=== PATIENT | male | born 1965 | race Caucasian/White ===

== ENCOUNTER → 2016-11-16 | Outpatient (CLI) | payer BC ==
--- NOTE | 2016-11-16 15:45 | CT ---
EXAMINATION TYPE: CT chest w con DATE OF EXAM: 11/16/2016 COMPARISON: NONE HISTORY: Cough CT DLP: 425.50 mGycm Automated exposure control for dose reduction was used. CONTRAST: CT scan of the chest is performed with IV Contrast, patient injected with 100 mL of Omnipaque 300. FINDINGS: There is a 5.9 mm noncalcified pulmonary nodule in the anteromedial basal segment of the le ft lower lobe, best seen on image 29. There is no significant axillary or hilar adenopathy. There is some shotty mediastinal lymph nodes. There is no pleural or pericardial fluid. The heart is not enlarged. There is a small hiatal hernia. Visualized upper abdominal structures are normal. There is mild hypertrophic spondylosis in the lower dorsal spine. IMPRESSION: 1. NO ACUTE INTRATHORACIC ABNORMALITY. 2. SMALL HIATAL HERNIA. 3. MINIMAL DEGENERATIVE CHANGE, LOWER DORSAL SPINE. 4. SOLITARY LEFT-SIDED PULMONARY NODULE. THREE-MONTH SHORT-TERM FOLLOW-UP WOULD BE SUGGESTED.
== END | disposition home or self-care (01) ==
LOC: RADCTMAIN 14:47
PROVIDERS: ATTEND Internal Medicine
DX: R91.1 Solitary pulmonary nodule (principal)
CPT/HCPCS: 71260; Q9967

== ENCOUNTER → 2019-03-31 | Outpatient (CLI) | payer OTHER ==
--- NOTE | 2019-03-31 13:57 | XR ---
EXAMINATION TYPE: XR lumbosacral spine min 4V DATE OF EXAM: 03/31/2019 CLINICAL HISTORY: Acute low back pain with radiculopathy after strain injury yesterday TECHNIQUE: Frontal, lateral, and oblique images of the lumbar spine are obtained. COMPARISON: None FINDINGS: There are 5 lumbar type vertebral bodies identified. The lumbar spine shows satisfactory alignment without evidence of acute fracture or dislocation. Vertebral body heights are within normal limits. Intervertebral disc space narrowing is seen at L5-S1. Mild facet arthropathy from L4 through S1. Small anterior osteophyte of the superior end plate of L4. Mild degenerative disc disease is als o seen in the visualized portions of the lower thoracic spine, incompletely visualized. The oblique i mages appear within normal limits. Overlying bowel is nondilated. IMPRESSION: No acute fracture or dislocation is seen in the lumbar spine. Mild multilevel degenerati ve disc disease of the lumbar spine. Given patient's symptoms evaluation for disc herniation could be performed with MRI of the lumbar spine.
== END | disposition home or self-care (01) ==
LOC: RADXRYALE 13:12
PROVIDERS: ATTEND Internal Medicine
DX: M51.36 Other intervertebral disc degeneration, lumbar region (principal)
CPT/HCPCS: 72110

== ENCOUNTER → 2019-06-06 | Outpatient (CLI) | payer OTHER ==
--- NOTE | 2019-06-06 07:31 | CT ---
EXAMINATION TYPE: CT chest w con DATE OF EXAM: 06/06/2019 COMPARISON: Chest CT April 02, 2017 and older study November 16, 2016 HISTORY: Lung Nodules CT DLP: 487.2 mGycm. Automated Exposure Control for Dose Reduction was Utilized. TECHNIQUE: CT scan of the thorax is performed following with IV Contrast, patient injected with 100 mL of Isovue 300. FINDINGS: LUNGS: Stable 4 mm nodule lateral left lung base on axial image 52. 5 x 3 mm left mid lung scar like opacity is stable from most recent study. No new greater than 4 mm pulmonary nodules or masses . Scat tered mild chronic parenchymal fibrotic changes. No pleural effusion or pneumothorax. MEDIASTINUM: There are no greater than 1 cm hilar or mediastinal lymph nodes. No cardiomegaly or pe ricardial effusion is seen. OTHER: Liver remains diffusely low dense consistent with diffuse fatty infiltration. IMPRESSION: Overall stable findings, documentation of over 2 year stability consistent with benign po stinflammatory etiology.
== END | disposition home or self-care (01) ==
LOC: RADCTMAIN 06:14
PROVIDERS: ATTEND Internal Medicine
DX: R91.8 Other nonspecific abnormal finding of lung field (principal)
CPT/HCPCS: 71260; Q9967

== ENCOUNTER → 2019-07-18 | Outpatient (CLI) | payer OTHER ==
--- NOTE | 2019-07-19 08:14 | XR ---
EXAMINATION TYPE: XR lumbosacral spine min 4V DATE OF EXAM: 07/18/2019 CLINICAL HISTORY: Low back pain after strain injury TECHNIQUE: Frontal, lateral, and oblique images of the lumbar spine are obtained. COMPARISON: 03/31/2019 FINDINGS: There are 5 lumbar type vertebral bodies identified. The lumbar spine shows satisfactory alignment without evidence of acute fracture or dislocation. Vertebral body heights and disk space he ights are within normal limits. Intervertebral disc space narrowing is again seen at L5-S1 with facet arthropathy from L4 through S1. Small anterior osteophytes of the lumbar spine are redemonstrated. The oblique images appear within normal limits. The overlying soft tissue appears unremarkable. Mild atherosclerosis of the abdominal aorta. IMPRESSION: 1. No acute fracture or dislocation is seen in the lumbar spine. 2. Mild multilevel degenerative disc disease is similar in degree to the prior of 03/31/2019.
== END | disposition home or self-care (01) ==
LOC: RADXRYALE 16:18
PROVIDERS: ATTEND Internal Medicine
DX: M51.37 Other intervertebral disc degeneration, lumbosacral region (principal)
CPT/HCPCS: 72110

== ENCOUNTER → 2020-11-28 | Outpatient (CLI) | payer OTHER ==
--- NOTE | 2020-11-29 11:52 | CT ---
EXAMINATION TYPE: CT chest wo con DATE OF EXAM: 11/28/2020 COMPARISON: 06/06/2019 HISTORY: lung nodule CT DLP: 488.90 mGycm, Automated exposure control for dose reduction was used. CONTRAST: Performed injected with 0 mL of Isovue 300. TECHNIQUE: Axial images were obtained at 5 mm thick sections. Reconstructed images are reviewed on [employer] computer in the coronal plane. FINDINGS: Portion of the thyroid visualized is normal. There is a 0.5 cm nodule in the mid left lung, present previously, slightly thickened over the interv al with a stable length. The 0.6 cm nodule in the left lung base appears stable from comparison. No enlarged mediastinal or hilar adenopathy is evident. The ascending aorta diameter at the level o f the main pulmonary artery is 3.4 cm. The main pulmonary artery diameter at the bifurcation is 2.8 cm. Minimal coronary artery calcification is present. Limited CT sections are obtained through the upper abdomen. Abdomen is essentially unremarkable. IMPRESSIONS: 1. There may be a slight thickening of the left mid lung nodule from comparison. Consider PET CT for additional evaluation. 2. Left basilar nodule is stable from comparison
== END | disposition home or self-care (01) ==
LOC: RADCTMAIN 18:36
PROVIDERS: ATTEND Internal Medicine
DX: R91.1 Solitary pulmonary nodule (principal)
CPT/HCPCS: 71250

== ENCOUNTER → 2020-12-13 | Outpatient (CLI) | payer OTHER ==
--- NOTE | 2020-12-17 16:54 | PE ---
Nuclear medicine PET/CT HISTORY: Lung nodule, R 91.1, initial Patient received 10.1 mCi F-18 FDG intravenously and delayed scanning was performed from the skull ba se to the mid thighs. Localization and attenuation correction CT scan was performed. Correlation to chest CT 11/28/2020, 05/27/2019 Chest and neck: There is no supraclavicular or cervical adenopathy. No mediastinal, axillary, or sara r adenopathy. The nodule described on CT chest report 11/28/2020 as possibly slightly thickened in the left lower lobe is associated with the fissure and is benign. Left lower lobe nodule along the hemid iaphragm is also benign. There is no associated hypermetabolic uptake, uptake would not be suspected in the size. There is no pleural or pericardial effusion. ABDOMEN: There is no retroperitoneal adenopathy. No evident liver mass. No ascites. No evident adrena l mass or suspicious hypermetabolic uptake. Question left hernia repair in inguinal region, suspect a right-sided hernia containing fat. Diverticular changes associated with the sigmoid colon. Osseous structures show no suspicious uptake. IMPRESSION: Benign lung nodules.
== END | disposition home or self-care (01) ==
LOC: RADPETMAIN 07:46
PROVIDERS: ATTEND Internal Medicine
DX: R91.8 Other nonspecific abnormal finding of lung field (principal)
CPT/HCPCS: 78815; A9552

== ENCOUNTER 2021-01-23 10:03 | Day surgery (SDC) | payer OTHER ==
[2021-01-21 10:32] VITALS: BMI 29.0
[~2021-01-23 10:03] MED LIST: LACTATED RINGERS 1,000 ML IV SCH
[2021-01-23 10:30] VITALS: RESP 16; TEMP 97.9
[2021-01-23] MEDS ORDERED: LIDOCAINE 1% INJ 10MG/ML (20 ML MDV) ONE (11:09)
[2021-01-23] MEDS ORDERED: PROPOFOL 10 MG/ML 20 ML VIAL IV ONE (11:09)
--- NOTE | 2021-01-23 11:44 | P.PCN ---
Date of Procedure: 01/23/21 Description of Procedure: BRIEF HISTORY: Patient is a 55-year-old male presenting for outpatient colonoscopy for screening for malignant neoplasm of the colon. Patient has had colonoscopies in the past, the last was over 2 years ago. He denies any change in bowel habits. No family history of colon cancer. PROCEDURE PERFORMED: Colonoscopy with polypectomy. PREOPERATIVE DIAGNOSIS: Screening for malignant neoplasm colon, he reports that last colonoscopy was over 2 years. ESTIMATED BLOOD LOSS: Minimal. IV sedation per Anesthesia. PROCEDURE: After informed consent was obtained, the patient, was brought into the endoscopy unit. IV sedation was administered by Anesthesia under continuous monitoring. Digital rectal examination was normal. Initially the Olympus CF-190 flexible video colonoscope was then inserted in the rectum, gradually advanced into the cecum without any difficulty. Careful examination was performed as the scope was gradually being withdrawn. Ileocecal valve and the appendiceal orifice were visualized and appeared normal. Prep was excellent. Mucosa of the cecum, ascending colon, transverse colon, descending colon, sigmoid colon, and rectum appeared normal. Patient had 3 diminutive polyps measuring 1-2 mm in size removed from the ascending colon, transverse colon 2. Sessile cecal polyp measuring 4 mm in size removed with cold snare polypectomy. Multiple large and small mouth diverticula noted throughout the colon. Retroflexion was performed in the rectum and no lesions were seen. The patient tolerated the procedure well. IMPRESSION: Sessile cecal polyp removed with cold snare polypectomy. 3 diminutive polyps removed with cold forcep polypectomy from the ascending colon and transverse colon 2. Mild pandiverticulosis. RECOMMENDATIONS: Findings of this examination were discussed with the patient and his . Okay to resume diet. Okay to medications. Await pathology from biopsies/polypectomies. Recommend repeat colonoscopy in 5 years pending pathology from polypectomies.
[2021-01-23 12:04] VITALS: BP 143/92; PULSE 67
== END 2021-01-23 12:38 | disposition home or self-care (01) ==
LOC: ORWHC2ENDO 10:03
PROVIDERS: ATTEND Internal Medicine
DX: Z12.11 Encounter for screening for malignant neoplasm of colon (principal); D12.0 Benign neoplasm of cecum; D12.2 Benign neoplasm of ascending colon; D12.3 Benign neoplasm of transverse colon; E78.5 Hyperlipidemia, unspecified; F17.200 Nicotine dependence, unspecified, uncomplicated; F12.90 Cannabis use, unspecified, uncomplicated; K21.9 Gastro-esophageal reflux disease without esophagitis; Z87.19 Personal history of other diseases of the digestive system
CPT/HCPCS: 88305; 45380; 45385; J2001; J2704

== ENCOUNTER → 2021-11-11 | Outpatient (CLI) | payer OTHER ==
--- NOTE | 2021-11-12 07:25 | CT ---
EXAMINATION TYPE: CT sinus wo con DATE OF EXAM: 11/11/2021 COMPARISON: NONE HISTORY: chronic sinusitis. attent R maxillary. Right-sided facial pain. CT DLP: 778 mGycm. Automated Exposure Control for Dose Reduction was Utilized. TECHNIQUE: CT scan of the sinuses is performed without contrast, axial images are obtained, coronal r eformatted images are also reviewed. FINDINGS: The paranasal sinuses including the frontal, ethmoid, sphenoid, and maxillary sinuses bila terally are well-aerated without abnormal opacification or suspicious air-fluid levels. The ostiomea benjie complex is patent bilaterally on the coronal images. Visualized portion of mastoid air cells show no abnormal opacification.. Some patchy cerumen in the b ilateral external auditory canals is present . The globes are intact bilaterally. IMPRESSION: The sinuses are clear and the ostiomeatal complex is patent bilaterally.
== END | disposition home or self-care (01) ==
LOC: RADCTMAIN 17:05
PROVIDERS: ATTEND Otolaryngology
DX: J32.9 Chronic sinusitis, unspecified (principal)
CPT/HCPCS: 70486

== ENCOUNTER → 2023-09-16 | Outpatient (CLI) | payer OTHER ==
[2023-09-16 14:45] LABS: Basophils # (A) 0.03 X 10*3/uL (0.00-0.10); Basophils % (A) 0.6 %; Eosinophils # (A) 0.14 X 10*3/uL (0.04-0.35); Eosinophils % (A) 2.7 %; HCT 43.8 % (39.6-50.0); HGB 14.8 g/dL (13.0-17.0); Lymphocytes # (A) 1.68 X 10*3/uL (0.90-5.00); Lymphocytes % (A) 32.9 %; MCH 29.4 pg (27.0-32.0); MCHC 33.8 g/dL (32.0-37.0); MCV 86.9 FL (80.0-97.0); Mean Platelet Volume 9.3 FL (9.5-12.2); Monocytes # (A) 0.78 X 10*3/uL (0.20-1.00); Monocytes % (A) 15.3 %; NRBC Per 100 WBC 0 X 10*3/uL (0.00-0.01); Neutrophils # (A) 2.46 X 10*3/uL (1.80-7.70); Neutrophils % (A) 48.3 %; Platelet Count 242 X 10*3/uL (140-440); RBC 5.04 X 10*6/uL (4.40-5.60); RDW 12.7 % (11.5-14.5)
[2023-09-16 15:07] LABS: ALT 26 U/L (10-49); AST 21 U/L (14-35); Albumin 4.3 g/dL (3.8-4.9); Albumin/Globulin Ratio 1.59 Ratio (1.60-3.17); Alkaline Phosphatase 62 U/L (41-126); BUN/Creat Ratio 15.91 Ratio (12.00-20.00); Bilirubin, Conjugated <0.20 mg/dL (0.20-0.40); Bilirubin,Unconjugated >0.40 mg/dL (0.20-1.00); Blood Urea Nitrogen 17.5 mg/dL (9.0-27.0); Calcium 9.8 mg/dL (8.7-10.3); Carbon Dioxide 27.6 mmol/L (21.6-31.8); Chloride 102 mmol/L (96-109); Creatine Kinase 60 U/L (35-257); Estradiol 20.1 pg/mL; Globulin 2.7 g/dL (1.6-3.3); Glucose 138 mg/dL (70-110); LDH 142 U/L (120-246); Sodium 140 mmol/L (135-145); T4, Free (Free Thyroxine) 1.35 ng/dL (0.80-1.80); Total Bilirubin 0.6 mg/dL (0.3-1.2)
[2023-09-16 15:23] LABS: Follicle Stimulating Hormone 1.2 mIU/mL; Luteinizing Hormone 1.9 mIU/mL
== END | disposition home or self-care (01) ==
LOC: LABWHC1 07:36
PROVIDERS: ATTEND Urology
DX: N40.1 Benign prostatic hyperplasia with lower urinary tract symptoms (principal); E29.1 Testicular hypofunction
CPT/HCPCS: 36415; 80048; 80076; 82040; 82550; 82670; 83001; 83002; 83036; 83615; 84146; 84153; 84270; 84403; 84439; 84443; 84479; 85025

== ENCOUNTER → 2024-07-07 | Outpatient (CLI) | payer OTHER ==
[2024-07-07 14:42] LABS: African American GFR (CKD) 77 (>60 ml/min/1.73 sqM); Blood Urea Nitrogen 18 mg/dL (9-20); Non-African American GFR(CKD) 66 (>60 ml/min/1.73 sqM)
--- NOTE | 2024-07-07 15:10 | CT ---
EXAMINATION TYPE: CT chest w con CT DLP: 549 mGycm, Automated exposure control for dose reduction was used. DATE OF EXAM: 07/07/2024 2:59 PM COMPARISON: PET/CT 12/13/2020, CT chest 11/28/2020, 06/06/2019, 06/02/2017, 11/16/2016 CLINICAL INDICATION:Male, 59 years old with history of R91.1 SOLITARY PULMONARY NODULE; [facility], nodules TECHNIQUE: Multiple axial images were obtained through the chest following the administration of 100 cc of Isovue 300. . Coronal and sagittal reformats reviewed. FINDINGS: LUNGS/ PLEURA: No pleural effusion or pneumothorax. Left lower lobe stable 3 mm pulmonary nodule dati ng back to 2017 (series 4, image 21). Considered benign. Stable 4 mm pulmonary nodule along the left major fissure dating back to 2017 and considered benign (series 4, image 31). No new or enlarging pu lmonary nodules. Development of patchy consolidative opacity within the posterior right upper lobe (s eries 4, image 22). AIRWAY: Patent and unremarkable.. HEART: Size within normal limits.No pericardial effusion. Small coronary calcification. MEDIASTINUM: No evidence of adenopathy. VASCULATURE: No aortic aneurysm. MUSCULOSKELETAL: No acute osseous abnormalities SOFT TISSUES/LYMPH NODES: Minimal bilateral gynecomastia. LOWER NECK: No significant findings. UPPER ABDOMEN: No significant findings. IMPRESSION: 1. Development of posterior right upper lobe patchy consolidative opacity concerning for pneumonia. C onsider follow-up chest radiographs to ensure resolution. 2. Stable pulmonary nodules dating back to 2016 and considered benign. No new or enlarging pulmonary nodules. [facility], , 07/07/2024 3:07 PM
== END | disposition home or self-care (01) ==
LOC: RADCTMAIN 13:58
PROVIDERS: ATTEND Internal Medicine
DX: R91.8 Other nonspecific abnormal finding of lung field (principal)
CPT/HCPCS: 82565; 84520; 71260; 36415; Q9967

== ENCOUNTER → 2024-09-14 | Outpatient (CLI) | payer OTHER ==
--- NOTE | 2024-09-14 13:06 | XR ---
EXAMINATION TYPE: XR chest 2V DATE OF EXAM: 09/14/2024 12:20 PM COMPARISON: Chest radiographs from 06/28/2014 CLINICAL INDICATION: Male, 59 years old with history of R911 LUNG NODULE; [facility] TECHNIQUE: XR chest 2V Frontal and lateral views of the chest. FINDINGS: Lungs/Pleura: There is no evidence of pleural effusion, focal consolidation, or pneumothorax. Pulmonary vascularity: Unremarkable. Heart/mediastinum: Cardiomediastinal silhouette is unremarkable. Musculoskeletal: No acute osseous pathology. IMPRESSION: No acute cardiopulmonary disease/process. [facility], , 09/14/2024 1:04 PM
== END | disposition home or self-care (01) ==
LOC: RADXRYALE 12:07
PROVIDERS: ATTEND Internal Medicine
DX: R91.1 Solitary pulmonary nodule (principal)
CPT/HCPCS: 71046